=== PATIENT | male | born 1995 ===

== ENCOUNTER 2016-08-26 13:26 | Emergency (ER) | payer OTHER ==
[2016-08-26 14:20] VITALS: BP 114/73
--- NOTE | 2016-08-26 14:54 | UC ---
Headache HPI - HPI Summary HPI Summary: 21 yo male with the gradual onset of headache yesterday PM Last PM headache was 6/10 has nasal congestion and chills no fever or myalgias no photo/phonophobia no n/v no head trauma currently pain level 2/10 taking tylenol - History Of Current Complaint Chief Complaint: UC Stated Complaint: HEADACHE Time Seen by Provider: 08/26/16 14:30 Hx Obtained From: Patient Onset/Duration: Gradual Onset, Lasting Days Onset Of Symptoms: Gradual Initially Headache Was: Mild Currently Pain Is: Mild Pain Intensity: 2 - not his worse marcum every Pain Scale Used: 0-10 Numeric Timing: Constant Character: Dull Location of Headache: Frontal Aggravating Factor: Nothing Allevating Factors: Nothing Associated Signs And Symptoms: Positive: Sinus Pressure - Allergies/Home Medications Allergies/Adverse Reactions: Allergies Allergy/AdvReac Type Severity Reaction Status Date / Time No Known Allergies Allergy Verified 08/26/16 14:20 PMH/Surg Hx/FS Hx/Imm Hx Previously Healthy: Yes - Surgical History Surgical History: None - Family History Known Family History: Negative: Cardiac Disease, Hypertension, Diabetes, Seizure Disorder - Social History Alcohol Use: Rare Substance Use Type: None Smoking Status (MU): Never Smoked Tobacco Review of Systems Constitutional: Negative Skin: Negative Eyes: Negative ENT: Negative Respiratory: Negative Cardiovascular: Negative Gastrointestinal: Negative Genitourinary: Negative Motor: Negative Neurovascular: Negative Musculoskeletal: Negative Neurological: Headache Psychological: Negative All Other Systems Reviewed And Are Negative: Yes Physical Exam Triage Information Reviewed: Yes Appearance: Well-Appearing, No Pain Distress, Well-Nourished Vital Signs: Initial Vital Signs Temp 98.3 F 08/26/16 14:14 Pulse 75 08/26/16 14:14 Resp 16 08/26/16 14:14 BP 114/73 08/26/16 14:14 Pulse Ox 100 08/26/16 14:14 Vital Signs Reviewed: Yes Eye Exam: Normal Eyes: Positive: Conjunctiva Clear, Other: - eomi/perrl, fundi benign ENT: Positive: Normal ENT inspection. Negative: Nasal congestion, Nasal drainage, Tonsillar exudate, Trismus, Muffled/hoarse voice Neck: Positive: Supple, Nontender Respiratory: Positive: Lungs clear, Normal breath sounds, No respiratory distress Cardiovascular: Positive: RRR, No Murmur Musculoskeletal: Positive: Strength Intact, ROM Intact, No Edema Neurological Exam: Normal Neurological: Positive: Alert, Other: - GCS 15/15, normal gait, non focal exam Psychological Exam: Normal Psychological: Positive: Normal Response To Family Skin Exam: Normal Headache Course/Dx - Differential Dx/Diagnosis Provider Diagnoses: headache. sinus pressure Discharge - Discharge Plan Condition: Stable Disposition: HOME Prescriptions: Fluticasone NASAL SPRAY 50MCG* [Flonase NASAL SPRAY 50MCG*] 2 spray BOTH NARES DAILY #1 btl Naproxen [Naproxen 500 MG TABS] 500 mg PO BID PRN #15 tab PRN Reason: Pain Patient Education Materials: Acute Headache (ED) Referrals: Abraham Cordon MD [Primary Care Provider] - 4 Days (if not better) Additional Instructions: recheck for new or worsening symptoms
== END 2016-08-26 14:54 | disposition home or self-care (01) ==
LOC: UCEAST 13:26
DX: R51 Headache (principal); J34.9 Unspecified disorder of nose and nasal sinuses
CPT/HCPCS: 99202; G0463

== ENCOUNTER 2018-01-22 13:03 | Emergency (ER) | payer OTHER ==
[2018-01-22 13:20] VITALS: BP 106/69
--- NOTE | 2018-01-22 13:20 | UC ---
Skin Complaint HPI - HPI Summary HPI Summary: 22 yo male presents with bug bite to right ankle that happened 3 days ago. Since that time has gotten red, itchy, and swollen. Denies fever, chills, numbness, tingling, or decreased ROM. - History of Current Complaint Time Seen by Provider: 01/22/18 13:17 Stated Complaint: SKIN COMPLAINT Hx Obtained From: Patient Onset/Duration: Gradual Onset Skin Exposure Onset/Duration: Days Ago Timing: Constant Onset Severity: Mild Current Severity: Mild Pain Intensity: 2 Pain Scale Used: 0-10 Numeric - Allergy/Home Medications Allergies/Adverse Reactions: Allergies Allergy/AdvReac Type Severity Reaction Status Date / Time No Known Allergies Allergy Verified 01/22/18 13:13 Review of Systems Constitutional: Negative Skin: Rash Respiratory: Negative Cardiovascular: Negative Gastrointestinal: Negative Neurovascular: Negative Musculoskeletal: Negative Neurological: Negative Psychological: Negative All Other Systems Reviewed And Are Negative: Yes PMH/Surg Hx/FS Hx/Imm Hx - Additional Past Medical History Additional PMH: None Previously Healthy: Yes - Surgical History Surgical History: None - Family History Known Family History: Negative: Cardiac Disease, Hypertension, Diabetes, Seizure Disorder - Social History Occupation: Student Lives: With Family Alcohol Use: Rare Substance Use Type: None Smoking Status (MU): Never Smoked Tobacco Physical Exam - Summary Physical Exam Summary: GENERAL: NAD. WDWN. No pain distress. SKIN: Right medial ankle: 5mm diameter of moderate erythema with surrounding mild erythema extending 2.0cm. Mildly TTP. No streaking, bleeding, or drainage. NECK: Supple. Nontender. No lymphadenopathy. CHEST: No accessory muscle use. Breathing comfortably and in no distress. CV: RRR. Without m/r/g. NEURO: Alert. CN II-XII grossly intact. PSYCH: Age appropriate behavior. Triage Information Reviewed: Yes Vital Signs: Vital Signs: Temp Pulse Resp BP Pulse Ox 99.2 F 81 18 106/69 97 01/22/18 13:14 01/22/18 13:14 01/22/18 13:14 01/22/18 13:14 01/22/18 13:14 Course/Dx - Course Course Of Treatment: Cellulitis due to bug bite right ankle - Keflex - Diagnoses Provider Diagnoses: Cellulitis due to bug bite right ankle Discharge - Sign-Out/Discharge Documenting (check all that apply): Discharge/Admit/Transfer - Discharge Plan Condition: Stable Disposition: HOME Prescriptions: Cephalexin CAP* [Keflex CAP*] 500 mg PO BID #14 cap Patient Education Materials: Cellulitis (DC) Referrals: Abraham Cordon MD [Primary Care Provider] - Additional Instructions: If you develop a fever, shortness of breath, chest pain, new or worsening symptoms - please call your PCP or go to the ED. - Billing Disposition and Condition Condition: STABLE Disposition: Home
== END 2018-01-22 13:32 | disposition home or self-care (01) ==
LOC: UCEAST 13:03
DX: S90.561A Insect bite (nonvenomous), right ankle, initial encounter (principal); L03.115 Cellulitis of right lower limb; W57.XXXA Bitten or stung by nonvenomous insect and other nonvenomous arthropods, initial encounter; Y93.9 Activity, unspecified; Y92.9 Unspecified place or not applicable
CPT/HCPCS: 99212; G0463